=== PATIENT | female | born 1970 | race Caucasian/White ===

== ENCOUNTER 2017-07-02 15:26 | Emergency (ER) | payer SELFPAY ==
[2017-07-02] MEDS ORDERED: NORMAL SALINE 1000 ML 1,000 ML IV ONE ×2 (15:40→19:19)
--- NOTE | 2017-07-02 15:43 | ER Document Report ---
ED Medical Screen (RME) - General Chief Complaint: Vaginal Bleeding Stated Complaint: VAGINAL BLEEDING Time Seen by Provider: 07/02/17 15:40 Mode of Arrival: Ambulatory Information source: Patient TRAVEL OUTSIDE OF THE [place] IN LAST 30 DAYS: No - HPI Patient complains to provider of: vaginal bleeding Onset: This morning - pt states she started with vaginal bleeding earlier today -- has not had a period in over 2 yrs. - Related Data Allergies/Adverse Reactions: No Known Allergies Allergy (Verified 01/09/15 15:13) Past Medical History - Social History Frequency of alcohol use: Social Drug Abuse: Marijuana Neurological Medical History: Reports: Hx Cerebrovascular Accident Renal/ Medical History: Denies: Hx Peritoneal Dialysis Malignancy Medical History: Reports: Hx Cervical Cancer Psychiatric Medical History: Reports: Hx Bipolar Disorder, Hx Schizophrenia Past Surgical History: Reports: Hx Gynecologic Surgery, Hx Hysterectomy - 2013, Hx Tonsillectomy - Immunizations Hx Diphtheria, Pertussis, Tetanus Vaccination: Yes Physical Exam - Vital signs Vitals: Temp Pulse Resp BP Pulse Ox 98.3 F 73 18 127/78 H 98 07/02/17 15:28 07/02/17 15:28 07/02/17 15:28 07/02/17 15:28 07/02/17 15:28 Course - Vital Signs Vital signs: Temp Pulse Resp BP Pulse Ox 98.3 F 73 18 127/78 H 98 07/02/17 15:28 07/02/17 15:28 07/02/17 15:28 07/02/17 15:28 07/02/17 15:28
[2017-07-02 16:32] LABS: ABSOLUTE BASOPHILS # (AUTO) 0.1 10^3/uL (0.0-0.2); ABSOLUTE EOSINOPHILS # (AUTO) 0.1 10^3/uL (0.0-0.6); ABSOLUTE LYMPHOCYTES (AUTO) 2.4 10^3/uL (0.5-4.7); ABSOLUTE MONOCYTES (AUTO) 0.8 10^3/uL (0.1-1.4); ABSOLUTE NEUT (AUTO) 8.3 10^3/uL (1.7-8.2); BASOPHILS % (AUTO) 0.6 % (0-2); EOSINOPHILS % (AUTO) 0.9 % (0-6); HEMATOCRIT 43.9 % (36.0-47.0); HEMOGLOBIN 15.1 g/dL (12.0-15.5); HGB HCT DIFFERENCE 1.4; LYMPHOCYTES % (AUTO) 20.5 % (13-45); MEAN CORPUSCULAR HEMOGLOBIN 32.7 pg (27.0-33.4); MEAN CORPUSCULAR HGB CONC 34.3 g/dL (32.0-36.0); MEAN CORPUSCULAR VOLUME 95 fl (80-97); MONOCYTES % (AUTO) 6.8 % (3-13); RED CELL DISTRIBUTION WIDTH 13.3 % (11.5-14.0); SEGMENTED NEUTROPHILS % (AUTO) 71.2 % (42-78); WHITE BLOOD COUNT 11.6 10^3/uL (4.0-10.5)
[2017-07-02 16:56] LABS: ALANINE AMINOTRANSFERASE 23 U/L (9-52); ALBUMIN 4.8 g/dL (3.5-5.0); ALKALINE PHOSPHATASE 71 U/L (38-126); ANION GAP 14 (5-19); ASPARTATE AMINO TRANSFERASE 18 U/L (14-36); BILIRUBIN,DIRECT 0.3 mg/dL (0.0-0.4); BILIRUBIN,TOTAL 0.4 mg/dL (0.2-1.3); BLOOD UREA NITROGEN 12 mg/dL (7-20); CALCIUM 10.4 mg/dL (8.4-10.2); CARBON DIOXIDE 22 mmol/L (22-30); CHLORIDE 107 mmol/L (98-107); CREATININE RESULT 0.87 mg/dL (0.52-1.25); GLUCOSE 124 mg/dL (75-110); POTASSIUM 4.2 mmol/L (3.6-5.0); SODIUM 143.3 mmol/L (137-145); TOTAL PROTEIN 7.4 g/dL (6.3-8.2)
[2017-07-02] MEDS ORDERED: DIPHENHYDRAMINE HCL 50 MG/ML VIAL IV ONE (19:18)
[2017-07-02] MEDS ORDERED: KETOROLAC TROMETHAMINE INJ/PF 30 MG/1 ML SDV IV ONE (19:18)
[2017-07-02] MEDS ORDERED: PROCHLORPERAZINE EDISYLATE INJ 10 MG/2 ML VIAL IV ONE (19:18)
--- NOTE | 2017-07-02 19:21 | ER Document Report ---
ED General - General Chief Complaint: Vaginal Bleeding Stated Complaint: VAGINAL BLEEDING Time Seen by Provider: 07/02/17 15:40 Mode of Arrival: Ambulatory Notes: Patient is a 47-year-old female without significant past medical history who presents with hematuria and generalized fatigue. To clarify, patient has not had any actual vaginal bleeding rather she states that she noticed blood when she urinated. Patient also notes that she has had several episodes of diarrhea since last night and that there was some blood on the toilet paper when she wipes today but no actual blood in the stool or in the toilet. She does complain of a dull, constant, aching suprapubic abdominal pain. She denies a history of similar symptoms in the past. Nothing improves or worsens her symptoms. She states that she feels generally achy and unwell but denies any recorded fever. She has not seen her primary care doctor regarding today's concerns. No known sick contacts. TRAVEL OUTSIDE OF THE [place] IN LAST 30 DAYS: No - Related Data Allergies/Adverse Reactions: No Known Allergies Allergy (Verified 01/09/15 15:13) Home Medications: Current Home Medications Topiramate [Topamax 25 mg Tablet] 25 mg PO Q12 07/02/17 [History] Past Medical History - General Information source: Patient - Social History Smoking Status: Current Every Day Smoker Frequency of alcohol use: Social Drug Abuse: Marijuana Lives with: Spouse/Significant other Family History: Reviewed & Not Pertinent Patient has suicidal ideation: No Patient has homicidal ideation: No Neurological Medical History: Reports: Hx Cerebrovascular Accident Renal/ Medical History: Denies: Hx Peritoneal Dialysis Malignancy Medical History: Reports: Hx Cervical Cancer Psychiatric Medical History: Reports: Hx Bipolar Disorder, Hx Schizophrenia Past Surgical History: Reports: Hx Gynecologic Surgery, Hx Hysterectomy - 2013, Hx Tonsillectomy - Immunizations Hx Diphtheria, Pertussis, Tetanus Vaccination: Yes Review of Systems - Review of Systems Notes: Constitutional: Negative for fever. HENT: Negative for sore throat. Eyes: Negative for visual changes. Cardiovascular: Negative for chest pain. Respiratory: Negative for shortness of breath. Gastrointestinal: Positive for abdominal pain and diarrhea Genitourinary: Negative for dysuria. Positive for hematuria Musculoskeletal: Negative for back pain. Skin: Negative for rash. Neurological: Negative for headaches, weakness or numbness. 10 point ROS negative except as marked above and in HPI. Physical Exam - Vital signs Vitals: Temp Pulse Resp BP Pulse Ox 98.3 F 73 18 127/78 H 98 07/02/17 15:28 07/02/17 15:28 07/02/17 15:28 07/02/17 15:28 07/02/17 15:28 Interpretation: Normal Notes: PHYSICAL EXAMINATION: GENERAL: Appears moderately unwell but in no acute distress HEAD: Atraumatic, normocephalic. EYES: Pupils equal round and reactive to light, extraocular movements intact, sclera anicteric, conjunctiva are normal. ENT: nares patent, oropharynx clear without exudates. Dry mucous membranes. NECK: Normal range of motion, supple without lymphadenopathy LUNGS: Breath sounds clear to auscultation bilaterally and equal. No wheezes rales or rhonchi. HEART: Regular rate and rhythm without murmurs ABDOMEN: Soft, nontender, normoactive bowel sounds. No guarding, no rebound. No masses appreciated. EXTREMITIES: Normal range of motion, no pitting or edema. No cyanosis. NEUROLOGICAL: No focal neurological deficits. Moves all extremities spontaneously and on command. PSYCH: Normal mood, normal affect. SKIN: Warm, Dry, normal turgor, no rashes or lesions noted. Course - Re-evaluation Re-evalutation: 07/02/17 19:19 Patient presents with multiple complaints but is overall well in appearance, vitals within normal limits. Her main complaint is that she feels "not good". Patient does also complain of hematuria but to clarify she has not had any vaginal bleeding. She also notes after several bouts of diarrhea between last night and today she had a small amount of blood on the toilet paper when she wiped, consistent with mucosal irritation. She denies any actual blood in her stool. Hemoglobin is within normal limits. Clinically on exam patient does appear somewhat dehydrated with dry oral mucosa and lips. She is also complaining of a dull headache which she states is typical for her when she becomes dehydrated and she does have a history of tension-like headaches. Headache was gradual in onset, no focal neurologic deficits, red flag symptoms concerning for subarachnoid hemorrhage, encephalitis, acute meningitis, or intercranial bleed. No indication for CT imaging of the head. Will proceed with IV fluids, medication for her headache, urinalysis, and reassess. 07/02/17 20:01 Urinalysis is consistent with acute pyelonephritis which likewise consistent with patient's right-sided CVA tenderness on examination as well as her complaint of hematuria. The urine has been sent for culture. She has been given a dose of ceftriaxone here in the emergency department. She does not meet sepsis criteria or require admission at this time based on her overall well appearance, vitals and labs. Will discharge on a 7 day course of cephalexin. At this time will discharge with return precautions and follow-up recommendations. Verbal discharge instructions given a the bedside and opportunity for questions given. Medication warnings reviewed. Patient is in agreement with this plan and has verbalized understanding of return precautions and the need for primary care follow-up in the next 24-72 hours. - Vital Signs Vital signs: Temp Pulse Resp BP Pulse Ox 97.4 F 60 18 91/54 L 98 07/02/17 21:23 07/02/17 21:23 07/02/17 21:23 07/02/17 21:23 07/02/17 21:23 - Laboratory Result Diagrams: 07/02/17 16:05 07/02/17 16:05 Laboratory results interpreted by me: 07/02/17 07/02/17 07/02/17 16:05 16:05 16:05 WBC 11.6 H Absolute Neutrophils 8.3 H Glucose 124 H Calcium 10.4 H Urine Protein 100 H Urine Blood LARGE H Ur Leukocyte Esterase LARGE H Discharge - Discharge Clinical Impression: Dehydration, Pyelonephritis Condition: Good Disposition: HOME, SELF-CARE Additional Instructions: You have been diagnosed with a condition called pyelonephritis which is an infection involving your kidneys and bladder. You have been given a dose of antibiotics here in the emergency department to help begin to treat this infection. Your also being sent home on antibiotics. Please start taking these later on today when you fill the prescription. Complete the course even if you feel better. Please return if you have persistent vomiting, pass out, have worsening pain, become unable to tolerate fluids, or have any other symptoms that are concerning to you. Please follow-up with your primary care physician in the next 24-48 hours. Prescriptions: Cephalexin Monohydrate [Keflex 500 mg Capsule] 500 mg PO Q6H 7 Days #28 capsule Referrals: CASSIE CASTRO MD [Primary Care Provider] - Follow up in 3-5 days
[2017-07-02 19:37] LABS: APPEARANCE,URINE TURBID; BILIRUBIN,URINE NEGATIVE (NEGATIVE); GLUCOSE, URINE NEGATIVE (NEGATIVE); KETONES,URINE NEGATIVE (NEGATIVE); LEUKOCYTE ESTERASE,URINE LARGE (NEGATIVE); NITRITE,URINE NEGATIVE (NEGATIVE); PROTEIN,URINE 100 mg/dL (NEGATIVE); URINE SPECIFIC GRAVITY 1.018; UROBILINOGEN,URINE NEGATIVE mg/dL (<2.0)
[2017-07-02] MEDS ORDERED: CEFTRIAXONE 1 GM/D5W RTU 1 GM/50 ML RTUPB IV ONE (20:00)
[2017-07-02 21:24] VITALS: BP 91/54
== END 2017-07-02 21:24 | disposition home or self-care (01) ==
LOC: ER 15:26
DX: E86.0 Dehydration (principal); N12 Tubulo-interstitial nephritis, not specified as acute or chronic; N93.9 Abnormal uterine and vaginal bleeding, unspecified; R31.9 Hematuria, unspecified; R53.83 Other fatigue; R19.7 Diarrhea, unspecified; F17.200 Nicotine dependence, unspecified, uncomplicated; Z79.899 Other long term (current) drug therapy
CPT/HCPCS: 99283; 96361; 96375; 96365; 36415; 87086; 85025; 87088; 80053; 81001; 87186; J1200; J1885; J0780; J7030; J0696